=== PATIENT | male | born 1965 | race Caucasian/White ===

== ENCOUNTER 2022-09-22 14:41 | Emergency (ER) | payer OTHER, SELFPAY ==
[2022-09-22] VITALS (12 sets, daily range): BP systolic 110–148; BP diastolic 84–112; PULSE 69–112; RESP 20; TEMP 36.3; O2SAT 91–98; BMI 34.6
--- NOTE | 2022-09-22 14:52 | ED.NURSE ---
POC troponin 0.00.
--- NOTE | 2022-09-22 15:09 | ED_ITS ---
HPI - General Adult General Chief complaint: Arrhythmia/Palpitations Stated complaint: irregular heartbeat Time Seen by Provider: 09/22/22 14:52 Source: patient Mode of arrival: ambulatory Limitations: no limitations History of Present Illness HPI narrative: 57-year-old male coming in today concerned about palpitations. He states he has been feeling his heart beat faster and harder on and off for a few weeks now. He denies any systemic symptoms such as headache, dizziness, vertiginous symptoms, chest pain. He does have shortness of breath with physical activity. He also feels slightly short of breath when he lays down at night. Last night was particularly bad. He does have obstructive sleep apnea and uses a CPAP at night. He states that he has been seen in the ER in the past with similar symptoms and he converted with IV fluids back to normal rhythm. 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 Upon review start appears that he had an episode of atrial flutter many years ago and an episode of atrial fibrillation about 3 years ago. Related Data Previous Rx's Medication Instructions Recorded atenolol 25 mg tablet 25 mg PO QDAY #60 tabs 08/06/22 atorvastatin 20 mg tablet 20 mg PO QHS #60 tabs 08/06/22 rivaroxaban 20 mg tablet (Xarelto) 20 mg PO QDAY #90 tabs 08/13/22 Allergies Allergy/AdvReac Type Severity Reaction Status Date / Time Quinolones AdvReac Unknown contraindicated Verified 09/22/22 14:52 in aortic aneursym Review of Systems Status of ROS: Reports: 10 or more systems reviewed and unremarkable except as noted in History and below [facility] Medical History History of atrial flutter (2013) ?Z86.79 - Personal history of other diseases of the circulatory system (ICD- 10) History of atrial fibrillation (2019) ?Z86.79 - Personal history of other diseases of the circulatory system (ICD- 10) Surgical History History of nasal polypectomy (12/1992) ?Z98.890 - Other specified postprocedural states (ICD-10) ?Z87.09 - Personal history of other diseases of the respiratory system (ICD- 10) Exam Narrative: Exam Narrative: Well-nourished well-developed patient in no acute distress. Alert and oriented. Answers questions appropriately. Mood and affect are appropriate. Thoughts are goal oriented and rational. No tangential or magical thinking noted. Patient speaks in full sentences without needing to catch their breath. HEENT: Normocephalic atraumatic. Pupils are equally round reactive to light. Extraocular muscles are intact. Conjunctivae are moist without any icterus noted. Moist mucous membranes. Neck is soft. Cardiovascular: Irregularly irregular. S1-S2 present without murmurs. Lungs: Clear to auscultation bilaterally no wheezes rhonchi or rales are appreciated. Patient takes deep breaths without any discomfort. Abdomen: Soft and nontender nondistended with normal bowel sounds. No guarding or rebound. No masses or organomegaly appreciated. Extremities: Bilateral lower extremities are without edema. Normal DP and PT pulses. Skin: Well perfused without any obvious rashes. Const: Vital Signs, click to edit/add: Vital Signs - 24 hr 09/22/22 14:44 09/22/22 14:51 09/22/22 14:52 Temperature 97.4 F L Pulse Rate 96 Pulse Rate [Pulse Oximeter] 112 H Respiratory Rate 20 Blood Pressure 141/103 H Blood Pressure [Ri ght Upper Arm] 141/103 H Pulse Oximetry 96 96 Oxygen Delivery Me thod Room Air Room Air 09/22/22 15:00 09/22/22 15:03 09/22/22 15:03 Temperature Pulse Rate 94 91 Pulse Rate [Pulse Oximeter] Respiratory Rate Blood Pressure 148/112 H Blood Pressure [Ri ght Upper Arm] Pulse Oximetry 98 96 97 Oxygen Delivery Me thod 09/22/22 15:15 Temperature Pulse Rate 92 Pulse Rate [Pulse Oximeter] Respiratory Rate Blood Pressure Blood Pressure [Ri ght Upper Arm] Pulse Oximetry 95 Oxygen Delivery Me thod Course Course Hospital Course: EKG, read by me, shows atrial fibrillation with RVR. IV was started and patient does received a L of normal saline and 20 mg of IV Cardizem. Pulse came down into the 70s, remained in atrial fibrillation. Patient felt significantly better. Denies feeling any palpitations and denies feeling short of breath. Labs are unremarkable, TSH pending at time of dictation. Vital Signs Vital signs: Initial Vital Signs Temperature 97.4 F L 09/22/22 14:44 Temperature Source Temporal Artery Scan 09/22/22 14:44 Pulse Rate 112 H 09/22/22 14:44 Respiratory Rate 20 09/22/22 14:44 Blood Pressure 141/103 H 09/22/22 14:44 Blood Pressure Mean 115 H 09/22/22 14:44 Blood Pressure Position Semi-Fowlers 09/22/22 14:44 Pulse Oximetry 96 09/22/22 14:44 Oxygen Delivery Method Room Air 09/22/22 14:44 Vital Signs Temperature 97.4 F L 09/22/22 14:44 Pulse Rate 112 H 09/22/22 14:44 Respiratory Rate 20 09/22/22 14:44 Blood Pressure 141/103 H 09/22/22 14:44 Pulse Oximetry 96 09/22/22 14:44 Oxygen Delivery Method Room Air 09/22/22 14:44 Temperature 97.4 F L 09/22/22 14:44 Pulse Rate 92 09/22/22 15:15 Respiratory Rate 20 09/22/22 14:44 Blood Pressure 148/112 H 09/22/22 15:03 Pulse Oximetry 95 09/22/22 15:15 Oxygen Delivery Method Room Air 09/22/22 14:51 Medical Decision Making MDM Narrative Medical decision making narrative: 57-year-old male presenting with atrial fibrillation with RVR, rate controlled per above. We discussed cardioversion however given the fact that he comes in out of this rhythm frequently over the last several weeks I do not think that cardioversion would be of benefit at this time. He does have an appoint with primary care provider in the morning. Also has a cardiology follow-up in [facility]. At this time we are going to stop his atenolol and put him on metoprolol 25 mg p.o. b.i.d., he can titrate to rate control as needed. Medical Records Medical records reviewed: Yes I reviewed the patient's medical records Lab Data Lab results reviewed: Yes I reviewed the patient's lab results Labs: Lab Results 09/22/22 Range/Units 14:52 WBC 9.09 (4.50-11.00) K/uL RBC 5.23 (4.30-5.90) m/uL Hgb 15.6 (13.5-17.5) gm/dL Hct 46.4 (37.0-53.0) % MCV 89 (80-100) fL MCH 30 (26-34) pg MCHC 34 (32-36) gm/dL RDW Coeff of Milagro 13.0 (11.5-15.5) % Plt Count 221 (140-440) K/uL Neut % (Auto) 40.7 L (42.0-72.0) % Lymph % (Auto) 42.7 (20-44) % [place] % (Auto) 11.4 H (0.0-11.0) % Eos % (Auto) 4.6 (0.0-7.0) % Baso % (Auto) 0.3 (0.0-3.0) % Neut # (Auto) 3.70 (1.7-7.0) K/uL Lymph # (Auto) 3.88 H (0.90-2.90) K/uL [place] # (Auto) 1.00 H (0.00-0.90) K/UL Eos # (Auto) 0.42 (0.00-0.50) K/uL Baso # (Auto) 0.03 (0.00-0.30) K/uL Sodium 138 (135-149) mmol/L Potassium 4.0 (3.6-5.1) mmol/L Chloride 108 (96-114) mmol/L Carbon Dioxide 21 (20-32) mmol/L BUN 23 (7-30) mg/dL Creatinine 1.3 (0.5-1.5) mg/dL Estimated Creat Clear 68.81 Estimated GFR 64 ml/min Glucose 105 (60-115) mg/dL Calcium 9.5 (8.4-10.6) mg/dL Troponin I < 0.01 L (0.01-0.04) ng/mL NT-Pro-B Natriuret Pep 1150 pg/mL POC Troponin I 0.00 L (0.01-0.04) ng/ml Discharge Plan Discharge Clinical Impression: Atrial fibrillation with RVR Patient Disposition: Home, Self-Care Condition: Improved Additional Instructions: Stop atenolol, start metoprolol as directed. Can increase the dose to 50 mg twice daily as needed to keep heart rate less than 100 beats per minute. Continue Eloy, follow-up with Dr. Ontiveros on Friday as scheduled. Prescriptions: No Action atenolol 25 mg tablet 25 mg PO QDAY Qty: 60 0RF atorvastatin 20 mg tablet 20 mg PO QHS Qty: 60 0RF Xarelto 20 mg tablet 20 mg PO QDAY Qty: 90 3RF Rx Instructions: must administer with evening meal Follow Up/Referrals: Florence Ontiveros MD [Primary Care Provider] - Stand Alone Forms: Popcorn5 Info Instructions
[2022-09-22] MEDS: dilTIAZem 5 MG/ML inj 20 MG IVP (15:10)
[2022-09-22] MEDS: 0.9 % SODIUM CHLORIDE 1000 ml 1,000 ML IV (15:11)
[2022-09-22 15:20] LABS: Basophils Absolute Auto 0.03 K/uL (0.00-0.30); Basophils Percent Auto 0.3 % (0.0-3.0); Eosinophils Absolute Auto 0.42 K/uL (0.00-0.50); Eosinophils Percent Auto 4.6 % (0.0-7.0); Hematocrit 46.4 % (37.0-53.0); Hemoglobin* 15.6 gm/dL (13.5-17.5); Immature Granulocytes Abs Auto 0.03 K/uL (0.00-0.30); Immature Granulocytes Pct Auto 0.3 %; Lymphocytes Absolute Auto 3.88 K/uL (0.90-2.90); Lymphocytes Percent Auto 42.7 % (20-44); Mean Corpuscular HGB Conc 34 gm/dL (32-36); Mean Corpuscular Hemoglobin 30 pg (26-34); Mean Corpuscular Volume 89 fL (80-100); Monocytes Percent Auto 11.4 % (0.0-11.0); Neutrophils Percent Auto 40.7 % (42.0-72.0); Platelet Count* 221 K/uL (140-440); Red Blood Count 5.23 m/uL (4.30-5.90); White Blood Count* 9.09 K/uL (4.50-11.00)
[2022-09-22 15:25] LABS: Slide Review Reflex No
[2022-09-22 15:35] LABS: Chloride* 108 mmol/L (96-114)
[2022-09-22 15:36] LABS: Sodium* 138 mmol/L (135-149)
[2022-09-22 15:38] LABS: Creatinine* 1.3 mg/dL (0.5-1.5); Est. Creatinine Clearance* 68.81; Estimated Glomerular Filt Rate 64 ml/min
[2022-09-22 15:39] LABS: Blood Urea Nitrogen* 23 mg/dL (7-30); Calcium* 9.5 mg/dL (8.4-10.6); Carbon Dioxide* 21 mmol/L (20-32); Glucose* 105 mg/dL (60-115)
[2022-09-22 15:50] LABS: NT Pro B Type NatriureticPept* 1150 pg/mL
[2022-09-22 15:52] LABS: Troponin I* < 0.01 ng/mL (0.01-0.04)
== END 2022-09-22 16:34 | disposition home or self-care (01) ==
PROVIDERS: Emergency Provider Family Medicine; PCP Internal Medicine
DX: I48.91 Unspecified atrial fibrillation (principal)
CPT/HCPCS: 36415; 80048; 83880; 84443; 84484; 85025; 93005; 94761; 96361; 96374; 99284; J7030

== ENCOUNTER 2023-10-09 10:57 | Outpatient (CLI) | payer OTHER, SELFPAY ==
--- OUTSIDE RECORDS SUMMARY | 2023-10-09 11:00 | XMS_ITS | Clinical Summary ---
Author Organization [facility] Address [place], [place] [address] Care Team Providers Care Primary Grade Teacher Name Role Phone Florence Ontiveros MD Primary Care Provider [phone] Allergies No known active allergies Medications Medication Sig Dispensed Refills Start Date End Date Status triamcinolone, 55 mcg each actuation, nasal (NASACORT) 55 mcg nasal spray Inhale 2 Sprays into both nostrils once daily. 16.5 g 08/18/2017 Active multivitamin (MVI) tablet Take 1 tablet by mouth once daily. 0 08/18/2017 Active atorvastatin (LIPITOR) 20 mg tablet Take 20 mg by mouth at bedtime. 11/22/2019 Active XARELTO 20 mg tablet Take 20 mg by mouth once daily with evening meal. 11/01/2019 Active sotaloL (BETAPACE) 80 mg tabletIndications:Per sistent atrial fibrillation (HC) Take 1.5 Tablets (120 mg) by mouth two times daily. 270 Tablet 3 04/15/2023 Active Active Problems Problem Noted Date Diagnosed Date Ascending aortic aneurysm 08/18/2017 Other nonspecific abnormal c ardiovascular system function study 03/10/2006 Overview: echo report 02/18/06 Mild enlargement of the ascending aorta at the level of the sinuses of Valsalva, 4.4 cm. The aortic root itself is minimally enlarged up to 3.8 cm. Aortic valve is structurally normal. Other premature beats 03/10/2006 Social History Tobacco Use Types Packs/Day Years Used Date Smoking Tobacco: Never Smokeless Tobacco: Never Alcohol Use Standard Drinks/Week Comments Not Currently 0 (1 standard drink = 0.6 oz pur e alcohol) 1-2 per week at the most Social Connections Answer Date Recorded Frequency of Communication with Friends and Fami ly Not on file 03/31/2021 Financial Resource Strain Answer Date R ecorded Difficulty of Paying Living Expenses Not on file 03/31/2021 Difficulty of Paying Living Expenses Not on file 03/31/2021 Sex and Gender Information Value Date Recorded Sex Assigned at Not on file Gender Identity Not on file Sexual Orientation Not on file Obstetrics History Last Filed Vital Signs Vital Sign Reading Time Taken Comments Blood Pressure 134/82 12/26/2022 2:40 PM CDT Pulse 61 12/26/2022 1:52 PM CDT Temperature 36.3 ??C (97.4 ??F) 10/16/2022 7:56 AM CD T Respiratory Rate 18 10/16/2022 7:56 AM CDT Oxygen Saturation 98% 12/26/2022 1:52 PM CDT Inhaled Oxygen Concentration - - Weight 117 kg (258 lb) 12/26/2022 1:52 PM CDT Height 182.9 cm (6') 12/26/2022 1:52 PM CDT Body Mass Index 34.99 12/26/2022 1:52 PM CDT Plan of Treatment Health Maintenance Due Date Last Done Comments Tdap 1976 Depression screening for age 12+ 1977 HIV for age 15-65 1980 Hepatitis C screening for ag e 18-79 1983 Tetanus booster 1985 Colonoscopy through age 75 2010 Lipids for age 45-75 03/10/2011 03/10/2006 Zoster (shingles) series for age 50+ (1 of 2) 2015 COVID-19 vaccine series ( season) 2022 01/07/2022, 07/26/2021, 01/04/2021 Influenza for age 50-64 11/30/2023 BMI (ht and wt on same day) for age 18+ 12/27/2023 12/26/2022, 07/03/2021, 08/18/2017 Pneumococcal series for age 6-64 Aged Out No longer eligible b ased on patient's age to complete this topic Procedures Procedure Name Priority Date/Time Associated Diagnosis Comments LIPID PANEL Timed 03/10/2006 7:40 AM HEAD SHIPPER Palpitations from Last 3 Months or Most Recently Relevant to Health Maintenance Results * (ABNORMAL) LIPID PANEL (03/10/2006 7:40 AM HEAD SHIPPER) CHOLESTEROL,TOTAL 190 110 - 199 mg/dL [facility] TRIGLYCERIDES 122 <150 mg/dL [facility] HDL CHOLESTEROL 35(L) >40 mg/dL [facility] CHOL/HDL RATIO 5.43(H) <4.51 [facility] LDL CHOLESTEROL 131(H) 60 - 130 mg/dL [facility] PATIENT STATUS Fasting [facility] Blood specimen (specimen) BLOOD SPECIMEN / Unknown 03/10/2006 7:40 AM HEAD SHIPPER 03/10/2006 7:40 AM HEAD SHIPPER Freedom Quintana MD CHEMISTRY Performing Organization Address City/State/[facility] Co de Phone Number [facility] [address] [place] [address] from Last 3 Months or Most Recently Relevant to Health Maintenance Advance Directives * Full Code (Latest Code Status on File) Date Activated Date Inactivated Comments 10/15/2022 12:07 PM 10/16/2022 11:40 AM Question Answer Comments Code Status Discussion: Reviewed Preferences * Full Code Date Activated Date Inactivated Comments 10/02/2022 12:31 PM 10/02/2022 4:45 PM Question Answer Comments Code Status Discussion: Reviewed Preferences Care Teams Primary Grade Teacher Relationship Specialty Start Date End Date Florence Ontiveros MD [address] [facility] [place] [address] PCP - General Internal Medicine 08/18/17
--- OUTSIDE RECORDS SUMMARY | 2023-10-09 11:00 | XMS_ITS | Clinical Summary ---
Author Organization [place] Address [address] [place] [address] Care Team Providers Care Cook Barbecue Name Role Phone Clinic, [facility] Primary Care Provider Allergies No known active allergies Medications Medication Sig Dispensed Refills Start Date End Date Status atenolol (TENORMIN) 25 MG tablet Take 25 mg by mouth daily 08/18/2017 Active simvastatin (ZOCOR) 20 MG tablet Take 20 mg by mouth daily 08/18/2017 Active rivaroxaban ANTICOAGULANT (XARELTO) 20 MG TABS tabletIndications:Brach ial artery occlusion, right (H24) Take 1 tablet (20 mg) by mouth daily (with dinner) 30 tablet 11 10/19/2018 Active Social History Tobacco Use Types Packs/Day Years Used Date Smoking Tobacco: Never Smokeless Tobacco: Never Alcohol Use Standard Drinks/Week Comments Yes 0 (1 standard drink = 0.6 oz pur e alcohol) AUDIT-C Answer Date Recorded Frequency of Alcohol Consumption 2-3 times a wee k 10/19/2018 Average Number of Drinks Not on file 019 Frequency of Binge Drinking Not on file 09/29 Adolescent Education Answer Date Record ed Getting School Help Needed Not on file 01/05 Sex and Gender Information Value Date Recorded Sex Assigned at Male 10/19/2018 4:00 PM CDT Gender Identity Male 10/19/2018 4:00 PM CDT Sexual Orientation Straight 10/19/2018 4: 00 PM CDT Last Filed Vital Signs Vital Sign Reading Time Taken Comments Blood Pressure 122/79 10/26/2018 8:26 AM CDT Pulse 61 10/26/2018 8:26 AM CDT Temperature - - Respiratory Rate 16 10/26/2018 8:26 AM CDT Oxygen Saturation 98% 10/26/2018 8:26 AM CDT Inhaled Oxygen Concentration - - Weight 113.4 kg (250 lb) 10/26/2018 8:26 AM CDT Height 182.9 cm (6') 10/26/2018 8:26 AM CDT Body Mass Index 33.91 10/26/2018 8:26 AM CDT Plan of Treatment Not on file Care Teams Cook Barbecue Relationship Specialty Start Date End Date Count Includes [facility] [address] [place] [address] PCP - General 10/12/18
--- OUTSIDE RECORDS SUMMARY | 2023-10-09 11:00 | XMS_ITS | Referral Summary ---
Author Organization [place] Address [address] [place] [id number] Care Team Providers Care Kiln Puller Name Role Phone Clinic, [facility] Primary Care Provider Allergies No known active [...] of Treatment Not on file Care Teams Kiln Puller Relationship Specialty Start Date End Date [facility] [address] [place] [address] PCP - General 10/12/18
== END 2023-10-09 10:58 | disposition home or self-care (01) ==
PROVIDERS: PCP Internal Medicine; Visit Provider Internal Medicine
DX: Z12.5 Encounter for screening for malignant neoplasm of prostate (principal); Z13.6 Encounter for screening for cardiovascular disorders
CPT/HCPCS: 80061; G0103

== ENCOUNTER 2024-10-20 08:02 | Outpatient (CLI) | payer OTHER, SELFPAY | END 2024-10-20 08:03 | disposition home or self-care (01) | LOC: NFLDREF 10-21 02:48 | PROVIDERS: PCP Internal Medicine; Referring Provider Internal Medicine; Visit Provider Internal Medicine | DX: E78.5 Hyperlipidemia, unspecified (principal); Z12.5 Encounter for screening for malignant neoplasm of prostate | CPT/HCPCS: 80061; G0103 ==